=== PATIENT | male | born 1990 | race Caucasian/White ===

== ENCOUNTER 2019-03-16 10:46 | Emergency (ER) | payer SELFPAY ==
[2019-03-16 10:54] VITALS: BP 137/98
[2019-03-16] MEDS ORDERED: LIDOCAINE HCL 1% MDV 200MG/20ML VIAL ONE (11:08)
--- NOTE | 2019-03-16 11:57 | ED Physician Documentation ---
General Adult - HISTORIAN Historian: patient - HPI Stated Complaint: 3rd L digit Laceration Chief Complaint: General Adult Onset: minutes Timing: still present Severity: moderate Further Comments: yes (Pt is a 28 yo male who lacerated the distal 3rd digit of his L hand with a skill saw. Pt has good sensation and movement of the digit. Tetanus is utd.) - ROS CONST: no problems EYES/ENT: none CVS/RESP: none GI/: none MS/SKIN/LYMPH: other (L hand 3rd digit laceration) - PAST HX Past History: none Allergies/Adverse Reactions: Allergies Allergy/AdvReac Type Severity Reaction Status Date / Time No Known Allergies Allergy Verified 03/16/19 10:54 Home Medications: Ambulatory Orders Medication Instructions Recorded NK 12/26/18 - SOCIAL HX Smoking History: cigarettes - FAMILY HX Family History: No - VITAL SIGNS Vital Signs: Vital Signs Temp Pulse Resp BP Pulse Ox 73 17 137/98 99 03/16/19 10:46 03/16/19 10:46 03/16/19 10:46 03/16/19 10:46 - REVIEWED ASSESSMENTS Nursing Assessment Reviewed: Yes Vitals Reviewed: Yes Procedures Wound Location: upper extremity (L hand 3rd digit, royal side, over mid distal phalanx) Wound Length: 2 cm Wound's Depth, Shape: superficial, linear, irregular Irrigated w/ Saline (ccs): 50 Betadine Prep?: No (Dae) Anesthesia: 1% Lidocaine (digital block) Wound Debrided: minimal Wound Repaired With: sutures Suture Size/Type: 4:0, nylon Number of Sutures: 4 Layer Closure?: No Progress - Progress Progress: Rx Keflex 500 mg. Take one every 8 hours for 7 days. May apply topical antibiotic such as Neosporin, Bacitracin, or Triple Antibiotic to sutured area twice daily for 5 days. Rx Tylenol #3 (with codeine). Take one or two every 4 to 6 hours as needed for pain. Follow up with primary provider in 7 days for suture removal. ED Results Lab/Radiology - Orders Orders: ED Orders Category Date Time Status Lidocaine 1% 20ml ([facility]) [Xylocaine] Med 03/16/19 11:08 Discontinued 200 mg .ROUTE .STK-MED ONE General Adult Physical Exam - PHYSICAL EXAM GENERAL APPEARANCE: mild distress NECK: normal inspection, supple RESPIRATORY: no resp distress, chest non-tender, breath sounds normal CVS: reg rate & rhythm, heart sounds normal BACK: normal inspection SKIN: other (laceration across distal 3rd digit of L hand, royal side, mid phalanx) EXTREMITIES: normal range of motion NEURO: motor nml, sensation nml Discharge Clincal Impression: Laceration, 3rd digit L hand Referrals: Primary Doctor,No [Primary Care Provider] - Condition: Stable Disposition: 01 HOME, SELF-CARE Decision to Admit: NO Decision Time: 12:15
[2019-03-16] MEDS ORDERED: LIDOCAINE HCL 1% MDV 200MG/20ML VIAL IM ONE (12:13)
== END 2019-03-16 12:12 | disposition home or self-care (01) ==
LOC: ED 10:46
DX: S61.213A Laceration without foreign body of left middle finger without damage to nail, initial encounter (principal); X99.8XXA Assault by other sharp object, initial encounter; Y99.8 Other external cause status
CPT/HCPCS: 12001; 99282